=== PATIENT | male | born 1940 | race American Indian/Alaskan Native ===

== ENCOUNTER 2017-06-17 09:16 | Outpatient (CLI) | payer MEDICARE, OTHER ==
--- NOTE | 2017-06-17 10:35 | Cat Scan Report ---
CT HEAD WITHOUT CONTRAST: HISTORY: Amnesia. Comparison: None. Serial contiguous axial images were obtained through the cranium. Intravenous contrast material was not administered. The ventricles are prominent which is probably secondary to central volume loss. There is impressive hypoattenuation throughout the white matter bilaterally which is a nonspecific finding. There is no evidence for hemorrhage, mass, extra-axial fluid collection or large area of acute ischemia. The hippocampi are unremarkable. The calvarium is intact. The visualized sinuses and mastoid air cells are well-aerated. IMPRESSION: Prominent ventricular system which is probably secondary to central volume loss. Hydrocephalus could be considered but is thought less likely. Diffuse hypoattenuation throughout white matter consistent with nonspecific chronic white matter changes.
== END 2017-06-17 09:17 | disposition home or self-care (01) ==
LOC: CT 09:16
PROVIDERS: ATTEND Specialist
DX: R41.1 Anterograde amnesia (principal); I10 Essential (primary) hypertension; Z87.891 Personal history of nicotine dependence
CPT/HCPCS: 70450